=== PATIENT | male | born 1970 | race Caucasian/White ===

== ENCOUNTER → 2019-11-06 12:20 | Outpatient (BNVA) | payer MEDICAID, SELFPAY | PROVIDERS: Family Provider Family Medicine; PCP Family Medicine; Visit Provider Nurse Practitioner Family | DX: Z01.818 Encounter for other preprocedural examination (principal) | CPT/HCPCS: 83036 ==

== ENCOUNTER 2019-11-28 08:00 | Outpatient (RCR) | payer MEDICAID, SELFPAY | END 2019-11-29 23:59 | disposition home or self-care (01) | LOC: WOUND 08:00 | PROVIDERS: Family Provider Family Medicine; PCP Family Medicine; Visit Provider Nurse Practitioner Family | DX: I96 Gangrene, not elsewhere classified (principal); L89.324 Pressure ulcer of left buttock, stage 4 | CPT/HCPCS: 11042 ==

== ENCOUNTER 2019-12-19 07:57 | Outpatient (RCR) | payer MEDICAID, SELFPAY | END 2019-12-28 23:59 | disposition home or self-care (01) | LOC: WOUND 07:57 | PROVIDERS: Family Provider Family Medicine; PCP Family Medicine; Visit Provider Nurse Practitioner Family | DX: I96 Gangrene, not elsewhere classified (principal); L89.324 Pressure ulcer of left buttock, stage 4 | CPT/HCPCS: 11042 ==

== ENCOUNTER 2021-07-20 08:24 | Outpatient (CLI) | payer MEDICAID, SELFPAY ==
--- NOTE | 2021-07-20 08:45 | MR_ITS ---
WS: [id number] MRI LEFT SHOULDER NONCONTRAST TECHNIQUE: Sagittal T2, coronal T1, T2 and proton density imaging. Axial gradient PDE imaging. CLINICAL INFORMATION: ACUTE PAIN OF LEFT SHOULDER COMPARISON: None. FINDINGS: Mild degenerative arthritis at the AC joint. Mild downsloping acromion. Subacromial spurring. Chronic thinning of the distal supraspinatus. Normal infraspinatus. Normal teres minor and subscapularis. No high-grade rotator cuff tears. Normal biceps tendon in the bicipital groove. Normal biceps labral anchor. Glenoid labrum appears louise ssly intact. Normal bone marrow signal in the humerus and glenoid. Small amount of subacromial/subdel toid fluid. MR/MR shoulder LT wo con* [id number] IMPRESSION: 1. Mild degenerative arthritis AC joint with mild downsloping acromion and sli ght subacromial spurring. Small amount of subacromial/subdeltoid fluid. 2. Chronic thinning of the distal supraspinatus. Rotator cuff is otherwise int act. No high-grade rotator cuff tears. 3. Normal biceps tendon in the bicipital groove. Normal biceps labral anchor. 4. Glenoid labrum appears grossly normal. 5. Normal bone marrow signal.
== END 2021-07-20 08:25 | disposition home or self-care (01) ==
LOC: RADSHAW 08:30
PROVIDERS: PCP Nurse Practitioner Family; Visit Provider Nurse Practitioner Family
DX: M19.012 Primary osteoarthritis, left shoulder (principal)
CPT/HCPCS: 73221

== ENCOUNTER → 2023-03-01 13:50 | Outpatient (BNVA) | payer MEDICAID, SELFPAY | PROVIDERS: PCP Nurse Practitioner Family; Visit Provider Thoracic Surgery (Cardiothoracic Vascular Surgery) | DX: Z51.89 Encounter for other specified aftercare (principal) | CPT/HCPCS: 99213 ==